=== PATIENT | male | born 1960 | race Caucasian/White ===

== ENCOUNTER 2017-08-05 00:08 | Emergency (ER) | payer OTHER ==
[~2017-08-05] VITALS: Ht 182.9 cm; Wt 89.0 kg
[~2017-08-05 00:08] MED LIST: ALLO100T PO; DOXY150C OR; IBUP400T20 PO; MELO7.5; TRAM50TA PO; WAL-10TA2 PO; [UNRECOGNIZED DRUG - CODE] PO
[2017-08-05 00:10] VITALS: BP 120/77; PULSE 85; RESP 20; TEMP 97.9; O2SAT 99
[2017-08-05] MEDS ORDERED: SYNT175T PO (00:25)
[2017-08-05] MEDS ORDERED: ALLO100T PO (00:25)
[2017-08-05] MEDS ORDERED: TRAM50TA PO (00:25)
--- NOTE | 2017-08-05 00:28 | PD ---
HPI Chief Complaint: Syncope/Near-Syncope Time Seen by Provider: 00:12 Travel History International Travel<30 days: No Contact w/Intl Traveler<30days: No Traveled to known affect area: No History of Present Illness HPI 57-year-old male complains of leg pain and syncope. Patient states that he has history of chronic bilateral lower extremity pain. Patient has been seen by the [place] [facility] for that. Patient states that he has increasing pain especially left by this evening. Patient states that he had a syncopal episode at home this evening. Patient states that he drank 2 beers today. Patient denies any headache. Patient denies any chest pain or shortness of breath. Patient denies abdominal pain. Patient denies any focal weakness or numbness of extremity. Patient states the pain in cramping pain and sharp pain, more severe in the left thigh area. Patient denies any pain radiation. Patient states that he has trouble with movement of the lower extremity. Patient denies any back pain. Patient denies any recent injury. Patient has history of severe arthritis to the hips and knees. Patient has been taking pain medications for pain of the lower extremity recently. PFSH Past Medical History Arthritis: Yes Autoimmune Disease: Yes COPD: Yes (EMPHYZEMA) Gout: Yes Tetanus Vaccination: Unknown Influenza Vaccination: Yes Past Surgical History Ear Surgery: Yes (REPAIRED RIGHT EAR DRUM) Endocrine Surgery: Yes (THYROID TUMOR REMOVED) Eye Surgery: Yes (CATARACT) Other Surgery: Yes (LEFT ARM AND LEFT THUMB SX, BROKEN COLLAR BONE) Social History Alcohol Use: Yes (OCC) Tobacco Use: No Substance Use: No Allergies-Medications (Allergen,Severity, Reaction): Coded Allergies: No Known Allergies (Unverified Adverse Reaction, Unknown, 08/05/17) Reported Meds & Prescriptions Reported Meds & Active Scripts Active Reported Allopurinol 100 Mg Tab 100 Mg PO DAILY Synthroid (Levothyroxine Sodium) 175 Mcg Tab 175 Mcg PO BID Tramadol (Tramadol HCl) 50 Mg Tab 50 Mg PO Q6H PRN Review of Systems General / Constitutional: No: Fever Eyes: No: Visual changes HENT: No: Headaches Cardiovascular: No: Chest Pain or Discomfort Respiratory: No: Shortness of Breath Gastrointestinal: No: Abdominal Pain Genitourinary: No: Dysuria Musculoskeletal: Positive: Pain Skin: No Rash Neurologic: No: Weakness Psychiatric: No: Depression Endocrine: No: Polydipsia Hematologic/Lymphatic: No: Easy Bruising Physical Exam Narrative GENERAL: Well-nourished, well-developed patient. SKIN: Focused skin assessment warm/dry. HEAD: Normocephalic. EYES: No scleral icterus. No injection or drainage. NECK: Supple, trachea midline. No JVD or lymphadenopathy. CARDIOVASCULAR: Regular rate and rhythm without murmurs, gallops, or rubs. RESPIRATORY: Breath sounds equal bilaterally. No accessory muscle use. GASTROINTESTINAL: Abdomen soft, non-tender, nondistended. MUSCULOSKELETAL: No cyanosis, or edema. Patient has moderate diffuse tenderness over the left thigh area anteriorly. Limited range of motion the lower extremity secondary to pain. The redness no heat noted. Sensorimotor function distally intact. Good DP pulses. BACK: Nontender without obvious deformity. No CVA tenderness. Neurologic exam normal. Data Data Last Documented VS Vital Signs Date Time Temp Pulse Resp B/P (MAP) Pulse Ox O2 Delivery O2 Flow Rate FiO2 08/05/17 00:36 20 98 Room Air 08/05/17 00:36 85 08/05/17 00:10 97.9 120/77 (91) Orders Orders Electrocardiogram (08/05/17 00:19) Complete Blood Count With Diff (08/05/17 00:19) Comprehensive Metabolic Panel (08/05/17 00:19) Creatine Kinase (Cpk) (08/05/17 00:19) Iv Access Insert/Monitor (08/05/17 00:19) Ecg Monitoring (08/05/17 00:19) Oximetry (08/05/17 00:19) Drug Screen, Random Urine (08/05/17 00:19) Alcohol (Ethanol) (08/05/17 00:19) Femur (Ap & Lat/2vws) (08/05/17 00:19) Ketorolac Inj (Toradol Inj) (08/05/17 00:30) Orphenadrine Inj (Norflex Inj) (08/05/17 00:30) Thyroid Stimulating Hormone (08/05/17 00:19) Labs Laboratory Tests Test 08/05/17 00:30 08/05/17 01:25 White Blood Count 5.3 TH/MM3 Red Blood Count 3.52 MIL/MM3 Hemoglobin 11.6 GM/DL Hematocrit 34.0 % Mean Corpuscular Volume 96.3 FL Mean Corpuscular Hemoglobin 32.9 PG Mean Corpuscular Hemoglobin Concent 34.2 % Red Cell Distribution Width 12.8 % Platelet Count 199 TH/MM3 Mean Platelet Volume 7.4 FL Neutrophils (%) (Auto) 45.6 % Lymphocytes (%) (Auto) 37.8 % Monocytes (%) (Auto) 12.4 % Eosinophils (%) (Auto) 3.9 % Basophils (%) (Auto) 0.3 % Neutrophils # (Auto) 2.4 TH/MM3 Lymphocytes # (Auto) 2.0 TH/MM3 Monocytes # (Auto) 0.7 TH/MM3 Eosinophils # (Auto) 0.2 TH/MM3 Basophils # (Auto) 0.0 TH/MM3 CBC Comment DIFF FINAL Differential Comment Blood Urea Nitrogen 14 MG/DL Creatinine 0.85 MG/DL Random Glucose 112 MG/DL Total Protein 6.7 GM/DL Albumin 3.2 GM/DL Calcium Level 8.0 MG/DL Alkaline Phosphatase 60 U/L Aspartate Amino Transf (AST/SGOT) 26 U/L Alanine Aminotransferase (ALT/SGPT) 20 U/L Total Bilirubin 0.1 MG/DL Sodium Level 140 MEQ/L Potassium Level 3.6 MEQ/L Chloride Level 107 MEQ/L Carbon Dioxide Level 24.7 MEQ/L Anion Gap 8 MEQ/L Estimat Glomerular Filtration Rate 92 ML/MIN Total Creatine Kinase 133 U/L Thyroid Stimulating Hormone 3rd Gen 0.041 uIU/ML Ethyl Alcohol Level 75 MG/DL Urine Opiates Screen NEG Urine Barbiturates Screen NEG Urine Amphetamines Screen NEG Urine Benzodiazepines Screen NEG Urine Cocaine Screen NEG Urine Cannabinoids Screen NEG [facility] Medical Decision Making Medical Screen Exam Complete: Yes Emergency Medical Condition: Yes Interpretation(s) 1:36 AM. X-ray right femur shows no acute bony injury. CBC within normal limit. 1:53 AM. CMP within normal limit. TSH 0.041. Urine drug screen negative. Alcohol 75. Differential Diagnosis Differential diagnosis including muscular spasm, electrolyte abnormality, sprain , fracture, dislocation. Narrative Course 57-year-old male with increasing lower extremity pain. History of chronic recurrent pain low extremity. Patient also had a syncopal episode this evening. Toradol 30 mg IV. Norflex 60 mg IM. Diagnosis Primary Impression: Myalgia Patient Instructions: General Instructions Additional Instructions: No levothyroxine for 2 days and resume taking levothyroxine once a day. Robaxin as needed for pain. Follow-up with local physician. Return if worse. Med/Other Pt SpecificInfo: Prescription(s) given, Existing Med Changed Scripts Methocarbamol (Robaxin) 750 Mg Tab 750 MG PO QID for Muscle Spasm, #60 TAB 0 Refills Prov: Koko Richardson MD 08/05/17 Disposition: 01 DISCHARGE HOME Condition: Stable Koko Richardson MD Aug 05, 2017 00:28
[2017-08-05] MEDS ORDERED: ORPHENADRINE INJ 60 MG/2 ML AMP IM ONE (00:30)
[2017-08-05] MEDS ORDERED: KETOROLAC TROMETHAMINE 30 MG/ML (IVP) VIAL IV PUSH ONE (00:30)
[2017-08-05 00:36] VITALS: RESP 20; O2SAT 98
--- NOTE | 2017-08-05 00:57 | RADRPT ---
EXAM DATE/TIME: 08/05/2017 00:31 [place] COMPARISON: KNEE RIGHT COMPLETE (4VWS), August 02, 2012, 10:46. INDICATIONS : Pt fell to ground tonight after passing out- States pain to left knee. MEDICAL HISTORY : Hypertension. SURGICAL HISTORY : Bilateral hip replacement ENCOUNTER: Initial ACUITY: 1 day PAIN SCORE: 7/10 LOCATION: Left Femur FINDINGS: The right femur is intact and has normal morphology. Renographic appearance of the soft tissues withi n normal limits. Patient has a right total hip arthroplasty appears intact. CONCLUSION: No acute abnormality demonstrated of the right femur. Erick Booker MD on August 05, 2017 at 0:55 Board Certified Radiologist. This report was verified electronically.
[2017-08-05 01:06] LABS: AUTOMATED NEUTROPHIL # 2.4 TH/MM3 (1.8-7.7); BASOPHIL % 0.3 % (0.0-2.0); EOSINOPHIL # 0.2 TH/MM3 (0-0.4); EOSINOPHIL % 3.9 % (0.0-4.0); HEMOGLOBIN 11.6 GM/DL (13.0-17.0); LYMPH % 37.8 % (9.0-44.0); MEAN CELL VOLUME 96.3 FL (80.0-100.0); MEAN CORPUSCULAR HEMOGLOBIN 32.9 PG (27.0-34.0); MEAN CORPUSCULAR HGB CONC 34.2 % (32.0-36.0); MEAN PLATELET VOLUME 7.4 FL (7.0-11.0); MONO % 12.4 % (0.0-8.0); MONOCYTE # 0.7 TH/MM3 (0-0.9); NEUT % 45.6 % (16.0-70.0); PLATELET COUNT 199 TH/MM3 (150-450); RED BLOOD COUNT 3.52 MIL/MM3 (4.50-5.90); RED CELL DISTRIBUTION WIDTH 12.8 % (11.6-17.2); WHITE BLOOD COUNT 5.3 TH/MM3 (4.0-11.0)
[2017-08-05 01:39] LABS: ALKALINE PHOSPHATASE 60 U/L (45-117); TOTAL BILIRUBIN ADULT 0.1 MG/DL (0.2-1.0); TOTAL PROTEIN 6.7 GM/DL (6.4-8.2)
[2017-08-05 01:48] LABS: ALBUMIN 3.2 GM/DL (3.4-5.0); ALT (GPT) 20 U/L (12-78); AST (GOT) 26 U/L (15-37); BICARBONATE 24.7 MEQ/L (21.0-32.0); BLOOD UREA NITROGEN 14 MG/DL (7-18); CHLORIDE 107 MEQ/L (98-107); CREATININE 0.85 MG/DL (0.60-1.30); GLOMERULAR FILTRATION RATE 92 ML/MIN (>89); GLUCOSE,RANDOM 112 MG/DL (74-106); SODIUM (NA) 140 MEQ/L (136-145)
[2017-08-05] MEDS ORDERED: ROBA750T PO (01:58)
--- NOTE | 2017-08-05 12:58 | EKG ---
Date Performed: 08/05/2017 Time Performed: 00:12:27 PTAGE: 57 years EKG: Sinus rhythm SEPTAL MYOCARDIAL INFARCTION ABNORMAL ECG NO PREVIOUS TRACING DOCTOR: Mark Culp Interpretating Date/Time 08/05/2017 12:57:38
== END 2017-08-05 02:22 | disposition home or self-care (01) ==
LOC: NEPC 00:08
DX: M79.1 Myalgia (principal); G89.29 Other chronic pain; M79.605 Pain in left leg; M79.604 Pain in right leg; J44.9 Chronic obstructive pulmonary disease, unspecified; R94.31 Abnormal electrocardiogram [ECG] [EKG]
CPT/HCPCS: 73552; 80053; 80307; 82550; 84443; 85025; 93005; 96372; 96374; 99285; J1885; J2360

== ENCOUNTER 2017-11-20 10:00 | Emergency (ER) | payer OTHER ==
[~2017-11-20] VITALS: Ht 180.3 cm; Wt 91.0 kg
[~2017-11-20 10:00] MED LIST changes: -DOXY150C OR; -IBUP400T20 PO; -MELO7.5; +ROBA750T PO; +SYNT175T PO; -WAL-10TA2 PO; -[UNRECOGNIZED DRUG - CODE] PO
[2017-11-20 10:02] VITALS: BP 126/59; PULSE 92; RESP 17; TEMP 99.4; O2SAT 98
[2017-11-20] MEDS ORDERED: CLINDAMYCIN PHOS 600 MG/4 ML VIAL IM ONE (10:15)
[2017-11-20] MEDS ORDERED: IBUPROFEN 800 MG TAB PO ONE (10:15)
[2017-11-20] MEDS ORDERED: IBUP1TAB7 PO (10:16)
[2017-11-20] MEDS ORDERED: CLIN300C5 PO (10:16)
--- NOTE | 2017-11-20 10:23 | PD ---
HPI Chief Complaint: Facial Pain or Swelling Time Seen by Provider: 10:05 Travel History International Travel<30 days: No Contact w/Intl Traveler<30days: No Traveled to known affect area: No History of Present Illness HPI 57-year-old male patient of the [place], presents emergency department with pain and swelling in the left upper jaw and cheek. Patient states he broke his left upper incisor 1 month ago, and had one treatment of amoxicillin for similar symptoms approximately 6 weeks ago. Patient states yesterday morning he woke up with pain and swelling in the left upper jaw which is gotten worse overnight. He went to the [place] today and was referred here for further evaluation and treatment. Patient denies fever, chills, difficulty swallowing, or change in his vision, or pain with ocular motion. Pain in the cheek is 6 out of 10. There is no drainage reported. He has no known drug allergies. PFSH Past Medical History Arthritis: Yes Autoimmune Disease: Yes (GOUT) COPD: Yes Gout: Yes Thyroid Disease: Yes Tetanus Vaccination: < 5 Years Past Surgical History Ear Surgery: Yes (REPAIRED RIGHT EAR DRUM) Endocrine Surgery: Yes (THYROID TUMOR REMOVED) Eye Surgery: Yes (CATARACT) Other Surgery: Yes (LEFT ARM AND LEFT THUMB SX, BROKEN COLLAR BONE) Social History Alcohol Use: Yes (OCC) Tobacco Use: No Substance Use: No Allergies-Medications (Allergen,Severity, Reaction): Coded Allergies: No Known Allergies (Unverified Adverse Reaction, Unknown, 11/20/17) Reported Meds & Prescriptions Reported Meds & Active Scripts Active Robaxin (Methocarbamol) 750 Mg Tab 750 Mg PO QID Reported Allopurinol 100 Mg Tab 100 Mg PO DAILY Synthroid (Levothyroxine Sodium) 175 Mcg Tab 125 Mcg PO BID Tramadol (Tramadol HCl) 50 Mg Tab 50 Mg PO Q6H PRN Review of Systems Except as stated in HPI: all other systems reviewed are Neg General / Constitutional: No: Fever Eyes: No: Visual changes HENT: Positive: Dental Difficulties, No: Headaches, Vertigo, Lightheadedness, Sore Throat, Rhinitis, Rhinorrhea, Congestion, Nosebleed, Neck Stiffness, Neck Pain, Masses, Gingival Bleeding, Ear Discharge, Earache, Other Cardiovascular: No: Chest Pain or Discomfort Respiratory: No: Shortness of Breath Gastrointestinal: No: Abdominal Pain Genitourinary: No: Dysuria Musculoskeletal: No: Pain Skin: No Rash Neurologic: No: Weakness Psychiatric: No: Depression Endocrine: No: Polydipsia Hematologic/Lymphatic: No: Easy Bruising Physical Exam Narrative GENERAL: Patient appears in mild distress SKIN: Warm and dry. Normal color. Normal turgor. There is notable erythema and swelling of the left maxillary region which feels indurated. HEAD: Atraumatic. Normocephalic. EYES: Pupils equal and round. No scleral icterus. No injection or drainage. Ocular motions are equal bilaterally without increased pain with motion. ENT: No nasal bleeding or discharge. Mucous membranes pink and moist. Teeth are in fairly poor repair, with cracked tooth of the left upper incisor, and multiple fillings to most teeth. There is swelling to the left upper gingival region. No draining abscess noted. TMs are clear bilaterally. Patient has tenderness and induration to the left maxillary cheek region. Pharynx is clear. Airways patent. NECK: Trachea midline. Supple and nontender without significant lymphadenopathy CARDIOVASCULAR: Regular rate and rhythm. RESPIRATORY: No accessory muscle use. Clear to auscultation. Breath sounds equal bilaterally. MUSCULOSKELETAL: Extremities without clubbing, cyanosis, or edema. No obvious deformities. NEUROLOGICAL: Awake and alert. No obvious cranial nerve deficits. Motor grossly within normal limits. Five out of 5 muscle strength in the arms and legs. Normal speech. PSYCHIATRIC: Appropriate mood and affect; insight and judgment normal. Data Data Last Documented VS Vital Signs Date Time Temp Pulse Resp B/P (MAP) Pulse Ox O2 Delivery O2 Flow Rate FiO2 11/20/17 10:02 99.4 92 17 126/59 (81) 98 Orders Orders Clindamycin Inj (Cleocin Inj) (11/20/17 10:15) Ibuprofen (Motrin) (11/20/17 10:15) [facility] Medical Decision Making Medical Screen Exam Complete: Yes Emergency Medical Condition: Yes Differential Diagnosis Cracked tooth. Dental abscess. Facial cellulitis. Narrative Course Patient is medically stable at time of exam. Patient was given clindamycin 600 mg IM Patient is given ibuprofen 800 mg p.o. now. Patient continued on clindamycin 300 mg 3 times daily for 10 days. Patient given ibuprofen 800 mg 3 times daily #60 Patient to follow with the [place] for dental follow-up or return if symptoms worsen. Diagnosis Primary Impression: Dental abscess Referrals: [facility]ist [place] [facility] [place] Patient Instructions: Dental Abscess (ED), General Instructions Additional Instructions: Patient was given clindamycin 600 mg IM Patient is given ibuprofen 800 mg p.o. now. Patient continued on clindamycin 300 mg 3 times daily for 10 days. Patient given ibuprofen 800 mg 3 times daily #60 Patient to follow with the [place] for dental follow-up or return if symptoms worsen. Med/Other Pt SpecificInfo: Prescription(s) given Scripts Ibuprofen (Ibuprofen) 800 Mg Tab 800 MG PO Q8H Y for Pain/Inflammation, #60 TAB 0 Refills Prov: Sawyer Ordaz MD 11/20/17 Clindamycin (Clindamycin) 300 Mg Cap 300 MG PO TID for Infection for 10 Days, CAP 0 Refills Prov: Sawyer Ordaz MD 11/20/17 Disposition: 01 DISCHARGE HOME Condition: Stable Rubens Crane Nov 20, 2017 10:23
== END 2017-11-20 10:56 | disposition home or self-care (01) ==
LOC: NEPK 10:00
DX: K04.7 Periapical abscess without sinus (principal); M10.9 Gout, unspecified
CPT/HCPCS: 96372